=== PATIENT | female | born 1940 | race Caucasian/White ===

== ENCOUNTER 2020-03-07 12:00 | Outpatient (CLI) | payer MEDICARE, MEDICAID, SELFPAY ==
--- NOTE | 2020-03-07 12:16 | USCV_ITS ---
Doug Antoinette Age: 79 Gender: F : 1940 Exam Date: 03/07/2020 12:26 Ordering Phys: Zena Hernandez MD ([email or web address]) Technologist: Mary Hidalgo Exam Location: [facility] [place] Indication: AR BP: / HR: 51 Rhythm: Sinus Technical Quality: Good MEASUREMENTS (Male / Female) Normal Values 2D ECHO LV Diastolic Diameter PLAX 4.4 cm 4.2 - 5.9 / 3.9 - 5.3 cm LV Systolic Diameter PLAX 2.7 cm IVS Diastolic Thickness 1.1 cm 0.6 - 1.0 / 0.6 - 0.9 cm IVS Systolic Thickness 1.7 cm LVPW Diastolic Thickness 1.1 cm 0.6 - 1.0 / 0.6 - 0.9 cm LVPW Systolic Thickness 1.6 cm LVOT Diameter 2.1 cm LV Ejection Fraction 2D Teich 68.2 % LV Ejection Fraction MOD 2C 68.1 % LV Ejection Fraction 2C AL 68.1 % LA Diameter 3.8 cm LA Width 3.4 cm LA Height 4.5 cm RA Width 2.4 cm RA Height 5.4 cm M-MODE LV Diastolic Diameter MM 5.5 cm 4.2 - 5.9 / 3.9 - 5.3 cm LV Systolic Diameter MM 3.8 cm LV Ejection Fraction MM Teich 59.8 % IVS Diastolic Thickness MM 0.6 cm 0.6 - 1.0 / 0.6 - 0.9 cm IVS Systolic Thickness MM 0.8 cm LVPW Diastolic Thickness MM 0.6 cm 0.6 - 1.0 / 0.6 - 0.9 cm LVPW Systolic Thickness MM 1.4 cm Aortic Annulus Diameter 2.5 cm LA Ao Ratio MM 1.5 MV E Point Septal Separation 0.8 cm DOPPLER AV Peak Velocity 239.0 cm/s LVOT Peak Velocity 90.0 cm/s AV Area Cont Eq vti 1.4 cm squared AV Area Cont Eq pk 1.3 cm squared MV Peak Velocity 116.0 cm/s MV Area PHT 2.9 cm squared Mitral E to A Ratio 0.7 MV E' Velocity 8.0 cm/s Mitral E to MV E' Ratio 10.8 Mitral E to LV E' Lateral Ratio 11.3 Mitral E to LV E' Septal Ratio 10.3 TR Peak Velocity 217.0 cm/s TR Peak Gradient 18.9 mmHg Right Atrial Pressure 3.0 mmHg Pulmonary Artery Systolic Pressu 21.8 mmHg PV Peak Velocity 99.0 cm/s RV Acceleration Time 0.1 s FINDINGS Left Ventricle Normal left ventricular size and systolic function, EF 68 %. No regional wall motion abnormalities. Mild left ventricular hypertrophy.Grade I/IV diastolic dysfunction (abnormal relaxation filling pattern), normal to mildly elevated filling pressures. Right Ventricle Normal right ventricular size and systolic function. Right Atrium The right atrium is normal in size. Left Atrium Mildly increased left atrial size. Mitral Valve Thickened mitral valve. Mild mitral annular calcification. Mild- moderate mitral valve regurgitation. Aortic Valve Thickened aortic valve. Ieid-fp-gvaglczt aortic valve regurgitation. Aortic valve sclerosis. Tricuspid Valve Trace tricuspid valve regurgitation. Pulmonic Valve Structurally normal pulmonic valve without significant stenosis. There is no pulmonic regurgitation. Pericardium Normal pericardium without effusion. Aorta Normal ascending aorta dimension. CONCLUSIONS Normal left ventricular size and systolic function, EF 68 %. No regional wall motion abnormalities. Mild left ventricular hypertrophy.Grade I/IV diastolic dysfunction (abnormal relaxation filling pattern), normal to mildly elevated filling pressures. Mildly increased left atrial size. Thickened mitral valve. Mild mitral annular calcification. Mild- moderate mitral valve regurgitation. Thickened aortic valve. Mjqx-cx-sxfoywwd aortic valve regurgitation. Features of aortic valve sclerosis Trace tricuspid valve regurgitation. There is no pericardial effusion. There are no intracardiac masses. Compared to the study from 01/20/2016, there may not be a significant change Dr Zena Hernandez MD [facility] (Electronically Signed) Final Date: 07 March 2020 16:45 S
--- NOTE | 2020-03-07 12:45 | USCV_ITS ---
Doug Antoinette Age: 79 Gender: F : 1940 Exam Date: 03/07/2020 12:09 Ordering Phys: Zena Hernandez MD ([email or web address]) Technologist: Darby Costello Exam Location: [facility] – [place] Indication: carotid stenosis Risk Factors: Previous Vascular Surgery: Right Brachial BP: / Left Brachial BP: / Right Left Velocity (cm/s) Spectral Plaque Velocity (cm/s) Spectral Plaque Syst/Diast Broadening Syst/Diast Broadening 68.80/ 9.90 Prox CCA 59.00 / 12.00 61.80/ 13.70 Mid CCA 47.90 / 12.80 63.50/ 12.00 Hetro Distal CCA 62.40 / 18.80 Hetro 72.00/ 20.60 Hetro Prox ICA 53.60 / 14.20 Hetro 74.60/ 16.30 Mid ICA 69.30 / 19.40 98.50/ 30.50 Distal ICA 50.70 / 17.10 90.10 Hetro ECA 74.50 Hetro 1.60 ICA/CCA 1.45 Antegrade Vertebral Antegrade 36.90/ 14.20 cm/s 35.80/ 7.40 cm/s Tri Subclavian Tri 135.4 42.50 0 FINDINGS Moderate dense irregular plaques at the bifurcation and proximal internal carotid arteries bilaterally Intimal thickening in the common carotid arteries bilaterally Antegrade flow in the vertebral arteries bilaterally Normal Doppler flow velocities in the external carotid arteries bilaterally CONCLUSIONS Moderate dense irregular plaques at the bifurcation and proximal internal carotid arteries bilaterally with velocity elevation consistent with 16-49% stenosis. Compared to the previous study from 03/27/2019, there may not be a significant change Dr Zena Hernandez MD [facility] (Electronically Signed) Final Date: 07 March 2020 16:21 S
== END 2020-03-07 12:01 | disposition home or self-care (01) ==
PROVIDERS: Family Provider Nurse Practitioner Family; PCP Nurse Practitioner Family; Visit Provider Internal Medicine Cardiovascular Disease
DX: I65.23 Occlusion and stenosis of bilateral carotid arteries (principal); I08.3 Combined rheumatic disorders of mitral, aortic and tricuspid valves
CPT/HCPCS: 93306; 93880

== ENCOUNTER 2021-11-12 06:43 | Outpatient (CLI) | payer MEDICARE, MEDICAID, SELFPAY ==
--- NOTE | 2021-11-12 07:15 | USCV_ITS ---
Antoinette Camacho Age: 81 Gender: F : 1940 Exam Date: 11/12/2021 06:52 Ordering Phys: Yo Levine MD (Andy) ([email or web address]) Technologist: Exam Location: [facility] [place] Indication: aaa HISTORY: Diameter (cm) AP x Transverse x Length Velocity (cm/s) Waveform Prox Aorta: 2.32 x 2.71 x 56.40 Biphasic Mid Aorta: 2.19 x 2.43 x 115.00 Biphasic Distal Aorta: 5.41 x 5.44 x 110.90 Biphasic Right Iliac Prox: 1.02 x 1.29 x 187.10 Biphasic Left Iliac Prox: 0.86 x 1.26 x 117.10 Biphasic Stent Prox Landing x x Aneurysmal Sac Max x x Lt Lat Sac Dim Rt Lat Sac Dim Stent Dist Landing x x Right Iliac Stent x x Left Iliac Stent x x Right Renal Art Left Renal Art FINDINGS: CONCLUSIONS Aneurysmal Distal abdominal aorta measuring 5.4 x 5.4cm Normal common iliac arteries Javi Ohara MD (Electronically Signed) Final Date: 12 November 2021 09:42 S
== END 2021-11-12 06:44 | disposition home or self-care (01) ==
LOC: RAD 06:44
PROVIDERS: PCP Nurse Practitioner Family; Visit Provider Thoracic Surgery (Cardiothoracic Vascular Surgery)
DX: I71.4 Abdominal aortic aneurysm, without rupture (principal)
CPT/HCPCS: 93978

== ENCOUNTER 2021-11-18 10:36 | Outpatient (CLI) | payer MEDICARE, MEDICAID, SELFPAY ==
--- NOTE | 2021-11-18 11:00 | CTR_ITS ---
PROCEDURE INFORMATION: Exam: CTA Abdomen and Pelvis With Contrast Exam date and time: 11/18/2021 11:00 AM Age: 81 years old Clinical indication: Condition or disease; Prior surgery; Surgery type: Cardiac stents; Patient HX: Aaa; Per PT US 09/2021 showed enlarged abdominal aorta; PT denies pain to abd area TECHNIQUE: Imaging protocol: Computed tomographic angiography of the abdomen and pelvis with contrast material. 3D rendering (Not supervised by radiologist): MIP and/or 3D reconstructed images were created by the technologist. Radiation optimization: All CT scans at this facility use at least one of these dose optimization techniques: automated exposure control; mA and/or kV adjustment per patient size (includes targeted exams where dose is matched to clinical indication); or iterative reconstruction. Contrast material: VISI 320; Contrast volume: 95 ml; Contrast route: INTRAVENOUS (IV); COMPARISON: No relevant prior studies available. RADIATION DOSE METRICS: Total DLP (mGy-cm): 807.07 FINDINGS: Lungs: Paraseptal emphysema is present. No consolidation. Aorta: Moderate diffuse atherosclerotic disease is present. There is fusiform aneurysmal dilatation of the infrarenal abdominal aorta, measuring 5.8 x 5.8 x 7.5 cm (Trans x AP x CC). Endoluminal thrombus is seen along the wall of the aneurysm. Celiac trunk and mesenteric arteries: There is focal severe stenosis at the ostium of the celiac trunk and SMA. Patent JORGE. Renal arteries: No occlusion. There is iowd-nn-zifqnxsc stenosis at the ostium of the renal arteries. Right iliac arteries: No occlusion or significant stenosis. Left iliac arteries: No occlusion or significant stenosis. Liver: There is a 1.1 cm hypodense lesion in segment IVb, likely representing a cyst or hemangioma. The liver is otherwise unremarkable. Gallbladder and bile ducts: Unremarkable. No calcified stones. No ductal dilation. Pancreas: Unremarkable. No mass. No ductal dilation. Spleen: Unremarkable. No splenomegaly. Adrenal glands: Unremarkable. No mass. Kidneys and ureters: Bilateral renal cysts noted, the largest measuring 3.5 cm on the right. Symmetric enhancement of the kidneys. No mass lesion identified. No hydronephrosis or nephrolithiasis. Stomach and bowel: There is diverticulosis without evidence of diverticulitis. Appendix: No evidence of appendicitis. Intraperitoneal space: Unremarkable. No free air. No significant fluid collection. Lymph nodes: Unremarkable. No enlarged lymph nodes. Urinary bladder: Unremarkable. No mass. Reproductive: Unremarkable as visualized. Bones/joints: No acute fracture. No dislocation. Degenerative changes of the spine seen. Soft tissues: Unremarkable. CT/CT angio abdomen pelvis [id number] IMPRESSION: Infrarenal abdominal aortic aneurysm.
[2021-11-18] MEDS: iodixanol 320 mg/mL 100mL Btl IV (11:28)
[2021-11-18 11:58] LABS: Blood Urea Nitrogen 26 mg/dL (8-23)
== END 2021-11-18 10:37 | disposition home or self-care (01) ==
PROVIDERS: PCP Nurse Practitioner Family; Visit Provider Thoracic Surgery (Cardiothoracic Vascular Surgery)
DX: I71.4 Abdominal aortic aneurysm, without rupture (principal)
CPT/HCPCS: 74174; 82565; 84520

== ENCOUNTER → 2021-11-23 10:59 | Outpatient (BNVA) | payer MEDICARE, MEDICAID, SELFPAY | PROVIDERS: PCP Nurse Practitioner Family; Visit Provider Internal Medicine Cardiovascular Disease | DX: I65.29 Occlusion and stenosis of unspecified carotid artery (principal); I35.1 Nonrheumatic aortic (valve) insufficiency; I10 Essential (primary) hypertension | CPT/HCPCS: 99214 ==

== ENCOUNTER → 2021-11-26 09:20 | Outpatient (BNVA) | payer MEDICARE, MEDICAID, SELFPAY | PROVIDERS: PCP Nurse Practitioner Family; Visit Provider Thoracic Surgery (Cardiothoracic Vascular Surgery) | DX: I71.4 Abdominal aortic aneurysm, without rupture (principal); Z87.891 Personal history of nicotine dependence | CPT/HCPCS: 99213; 99214 ==

== ENCOUNTER → 2021-12-23 10:14 | Day surgery (SDC) | payer MEDICARE, MEDICAID, SELFPAY | PROVIDERS: PCP Nurse Practitioner Family; Visit Provider Thoracic Surgery (Cardiothoracic Vascular Surgery) | DX: Z01.818 Encounter for other preprocedural examination (principal) | CPT/HCPCS: 93005 ==

== ENCOUNTER 2021-12-29 05:56 | Inpatient (IN) | payer MEDICARE, MEDICAID, SELFPAY ==
[2021-12-23 10:03] VITALS: BMI 27.0
--- NOTE | 2021-12-23 10:14 | ECG_ITS ---
[facility] Test Date: 2021-12-23 Pat Name: Antoinette Camacho Department: Room: Gender: Female [employer] Supervisor: : 1940 Requested By: Yuriy Field Order Number: [id number] Oren MD: Arcadio Marshall M.D. Measurements Intervals [place] Rate: 57 P: 54 AK: 190 QRS: -10 QRSD: 92 T: 43 QT: 435 QTc: 426 Interpretive Statements SINUS BRADYCARDIA MODERATE VOLTAGE CRITERIA FOR LVH, CONSIDER NORMAL VARIANT [MEETS CRITERIA IN ONE OF: R(aVL), S(V1), R(V5), R(V5/V6)+S(V1)] No previous ECG available for comparison Electronically Signed On 12-23-2021 22:27:53 CDT by Arcadio Marshall M.D. [id number]
[2021-12-23 10:25] LABS: Add Urine Microscopic? NO; Charge for UA Resulting for Rev
[2021-12-23 10:41] LABS: Bilirubin Urine Neg (Negative); Blood Urine Neg (Negative); Glucose Urine UA Norm (Normal); Ketones Urine Negative (Negative); Leukocyte Esterase Urine Negative (Negative); Nitrate Urine Negative (Negative); Protein Urine Neg (Negative); Specific Gravity, Urine 1.005 (1.005-1.030); Urine Appearance Clear (CLEAR); Urine Color Yellow (Yellow); Urobilinogen Urine Neg (Negative); pH Urine 5 (5-7)
[2021-12-23 10:58] LABS: Basophils # 0.1 10^3/uL (0.0-0.1); Basophils % 0.9 %; Eosinophils # 0.4 10^3/uL (0.0-0.8); Eosinophils % 4.9 %; Hematocrit 37.2 % (37.0-47.0); Hemoglobin 11.7 g/dL (11.5-15.3); Lymphocytes # 0.8 10^3/uL (0.8-4.8); Lymphocytes % 10.5 %; Mean Corpuscular HGB Conc 31.5 g/dL (30.0-36.0); Mean Corpuscular Hemoglobin 27.9 pg (28.0-34.0); Mean Corpuscular Volume 88.8 fl (81-99); Mean Platelet Volume 12.2 fL (7.4-10.4); Monocytes # 0.8 10^3/uL (0.2-0.9); Monocytes % 10.8 %; Neutrophils # 5.55 10^3/uL (1.8-7.7); Neutrophils % 72.4 %; Nucleated Red Blood Cells % 0 %; Platelet Count 233 10^3/cmm (130-400); Red Blood Count 4.19 10^6/uL (4.1-5.3); Red Cell Distribution Width 14.1 % (12.1-15.1); White Blood Count 7.7 10^3/uL (4.0-10.0)
[2021-12-23 11:41] LABS: Anion Gap 17.1 (5-19); Blood Urea Nitrogen 28 mg/dL (8-23); Calcium 10.1 mg/dL (8.5-10.5); Carbon Dioxide 25 mmol/L (22-29); Chloride 101 mmol/L (98-107); Glucose 93 mg/dL (65-115); Osmolality Calculated 293 mOsm/kg (285-295); Potassium 4.1 mmol/L (3.5-5.1); Sodium 139 mmol/L (136-145)
--- NOTE | 2021-12-23 16:44 | P.ANESASSM_ITS ---
Pre-Anesthetic Assessment Height/Weight: Height 1.55 m Weight 64.864 kg Preop Diagnosis: Abdominal aortic aneurysm Operation Date: 12/29/21 07:00 Proposed Procedures p AAA Stent Cutdown(Not Applicable) - Yo Levine MD Operation Date: 12/29/21 07:00 Proposed Procedures p Endovascular Aortic Repair(Not Applicable) - Yo Levine MD Familial anesthetic complications: None Was Beta Won taken within 24 hours: Yes Was Clonidine taken within 24 hours: N/A Social No alcohol and No tobacco former smoker pack(s) per day Exam alert, oriented x 3, clear to auscultation bilaterally and regular rate & rhythm Airway Submandibular: within normal limits Cervical ROM: within normal limits Mallampati: Class II Dentition: false Pulmonary Exertional Dyspnea Denies cx of COPD CV/HEM Anemia (Hx of anemia ), Coronary Artery Disease (Hx of cardiac stents ), Hypertension, Murmur and Peripheral Vascular Disease METS = 4 Carotid stenosis AAA Mitral regurgitation EKG 12/23/21 ? ? ? Interpretive Statements SINUS BRADYCARDIA MODERATE VOLTAGE CRITERIA FOR LVH, CONSIDER NORMAL VARIANT? [MEETS CRITERIA IN ONE OF: R(aVL), S(V1), R(V5), R(V5/V6)+S(V1)] No previous ECG available for comparison [id number] [id number] Carotid Doppler 03/2020 CONCLUSIONS ?Moderate dense irregular plaques at the bifurcation and proximal ?internal carotid arteries bilaterally with velocity elevation ?consistent with 16-49% stenosis. ?Compared to the previous study from 03/27/2019, there may not be ?a significant change TTE 03/2020 ?CONCLUSIONS ?Normal left ventricular size and systolic function, EF 68 %. No ?regional wall motion abnormalities. Mild left ventricular ?hypertrophy.Grade I/IV diastolic dysfunction (abnormal ?relaxation filling pattern), normal to mildly elevated filling ?pressures. ?Mildly increased left atrial size. ?Thickened mitral valve. Mild mitral annular calcification. Mild- ?moderate mitral valve regurgitation. ?Thickened aortic valve. Nzvh-oq-ktzcmhjx aortic valve ?regurgitation. ?Features of aortic valve sclerosis ?Trace tricuspid valve regurgitation. ?There is no pericardial effusion. ?There are no intracardiac masses. ?Compared to the study from 01/20/2016, there may not be a ?significant change None reported Hepatic None reported GI None reported Metabolic Thyroid Disease [facility] [place] None reported Neuropsych None reported Anesthetic Plan ASA status: 3 (81 year old female former smoker with carotid stenosis, CAD s/p stents, MR, HTN, and AAA ) Anesthesia: Anesthesia Evaluation Other: We discussed risk and benefits of general anesthesia including PONV, sore throat (sometimes severe), corneal abrasion, positioning and peripheral nerve injuries, life threatening allergic reaction, post operative ICU admission requiring prolonged intubation, stroke, heart attack, , and rare incidences of recall. Patient consents to proceed with general anesthesia. Plan 2 IV, a line Risk of > 500 ml blood loss (7ml/kg in children): Yes, adequate IV access and fluids planned Medications/Allergies Home Medications Medication Instructions Recorded Confirmed Last Taken Type cyanocobalamin (vitamin B-12) 1,000 mcg SUBCUT .monthly ml 09/25/19 12/23/21 12/20/21 History 1,000 mcg/mL injection solution levothyroxine 88 mcg capsule 88 mcg PO QDAY 09/25/19 12/23/21 Unknown History turmeric root extract 500 mg 500 mg PO QID 09/25/19 12/23/21 Unknown History capsule metoprolol tartrate 50 mg tablet 50 mg PO BID #180 tab 01/12/21 12/23/21 Unknown Rx clopidogrel 75 mg tablet (Plavix) 75 mg PO QDAY #90 tab 04/14/21 12/23/21 12/23/21 Rx amlodipine 10 mg tablet 10 mg PO DAILY tab 10/15/21 12/23/21 Unknown History cinnamon bark 500 mg capsule 1,000 mg PO DAILY 11/23/21 12/23/21 Unknown History atorvastatin 40 mg tablet (Lipitor) 40 mg PO BEDTIME 12/23/21 12/23/21 Unknown History chlorthalidone 25 mg tablet 25 mg PO DAILY 12/23/21 12/23/21 Unknown History losartan 100 mg tablet 100 mg PO BEDTIME 12/23/21 12/23/21 Unknown History omega-3 fatty acids 1,000 mg PO DAILY 12/23/21 12/23/21 Unknown History Allergies Allergy/AdvReac Type Severity Reaction Status Date / Time codeine Allergy unknown Verified 11/26/21 09:27 [facility] Anesthesia Medical History AAA (abdominal aortic aneurysm) Anemia Arteriosclerotic heart disease (ASHD) Carotid stenosis Hyperlipemia Hypertension Valvular heart disease Patient was found to have mild to moderate mitral regurgitation by the echocardiogram, on 03/07/2020 Surgical History H/O cataract extraction History of cholecystectomy History of tubal ligation Family History Mother CAD (coronary artery disease) Family/Other CAD (coronary artery disease) Father Dementia Other Hypertension Denies family history of Diabetes Clotting disorder Chronic kidney disease (CKD) Suicide Anesthesia complication Bleeding disorder Lung disease Cancer Stroke Social History Smoking and tobacco status: former smoker Quit status (tobacco): has quit using tobacco Year quit tobacco: 2010 Former quit date comment: Smoked 1 pack per day x 51 years Alcohol intake: never Data Anesthesia : 12/23/21 10:41 12/23/21 10:41 Short CBC 12/23/21 Range/Units 10:41 WBC 7.7 (4.0-10.0) 10^3/uL Hgb 11.7 (11.5-15.3) g/dL Hct 37.2 (37.0-47.0) % MCV 88.8 (81-99) fl Plt Count 233 (130-400) 10^3/cmm Neut % (Auto) 72.4 % Neut # (Auto) 5.55 (1.8-7.7) 10^3/uL BMP 12/23/21 10:41 Sodium 139 Potassium 4.1 Chloride 101 Carbon Dioxide 25 BUN 28 H Creatinine 1.3 H Glucose 93 Calcium 10.1 Urine 12/23/21 Range/Units 10:15 Urine Color Yellow (Yellow) Urine Appearance Clear (CLEAR) Urine pH 5 (5-7) Ur Specific [place] 1.005 (1.005-1.030) Urine Protein Neg (Negative) Urine Glucose (UA) Norm (Normal) Urine Ketones Negative (Negative) Urine Nitrate Negative (Negative) Urine Bilirubin Neg (Negative) Ur Leukocyte Esterase Negative (Negative) Blood Bank 12/23/21 10:41 Blood Type O Positive Rho(D) Type Positive Antibody Screen Negative Cardiac Studies: Echocardiogram Ultrasound 03/07/20
[2021-12-29] VITALS (20 sets, daily range): BP systolic 87–119; BP diastolic 39–62; PULSE 53–83; RESP 7–20; TEMP 36.8; O2SAT 91–100
--- NOTE | 2021-12-29 06:05 | P.HP_ITS ---
Providers/Chief Complaint Admitting Physician: Dr. Levine/cardiothoracic surgery Primary Care Provider: MIMI Phelps Chief Complaint: triple AAA History of Present Illness Antoinette Camacho is a 81 year old female whom I saw originally in consultation back on October 15 upon referral for incidental finding of a distal abdominal aortic aneurysm up to 7 cm and described which was noted on a renal ultrasound September 17. The study was performed at [facility]. She had originally been diagnosed with renal insufficiency and was being evaluated by a medical social consultant. She has chronic kidney disease stage III. She remains asymptomatic. Creatinine has been averaging 1.3-1.6 but has peaked at 1.8 previously. She is a past history of tobacco use though none since 2010. She has no other peripheral vascular disease symptoms such as claudication. She is followed by Dr. Hernandez for her cardiac care. She does have a prior history for coronary stents. Transthoracic echocardiogram from March 07, 2020 reveals mild to moderate aortic insufficiency and mild to moderate mitral valve regurgitation. Ejection fraction calculated 68%. She has no family history for aneurysmal disease. Evaluation continued with aortoiliac ultrasound on November 12 describing the distal aorta at 5.41 x 5.44 cm. This was followed up with a CTA of the abdomen and pelvis of November 18. The aorta measures 5.8 x 5.8 x 7.5 cm in transverse by AP by craniocaudal dimensions. There is intraluminal thrombus along the wall of the aneurysm. There is focal stenosis of the celiac and SMA trunks. There is a patent JORGE. No stenoses in the renal arteries. I saw Ms. Camacho back in my clinic on November 26 and reviewed the CTA findings with her. Recommendation to consider elective endovascular pair was discussed as well as potential complications. She does wish to proceed, therefore she was electively admitted for planned procedure. Review of Systems Const: Reports: body aches; Denies: fever(s) or chills Eyes: Denies: change in vision ENMT: Reports: nasal discharge and nasal congestion Card: Reports: swelling of feet/ankles and dyspnea on exertion Resp: Denies: productive cough, non-productive cough or hemoptysis GI: Denies: abdominal pain, nausea, vomiting or hematemesis Musc: Reports: back pain and joint pain Skin/Breast: Denies: rash Psych: Denies: anxiety or depression Endo: Denies: polyuria or polydipsia Edmundo/Lymph: Reports: easy bruising Medications/Allergies Home Medications Medication Instructions Recorded Confirmed Last Taken Type cyanocobalamin (vitamin B-12) 1,000 mcg SUBCUT .monthly ml 09/25/19 12/23/21 12/20/21 History 1,000 mcg/mL injection solution levothyroxine 88 mcg capsule 88 mcg PO QDAY 09/25/19 12/23/21 Unknown History turmeric root extract 500 mg 500 mg PO QID 09/25/19 12/23/21 Unknown History capsule metoprolol tartrate 50 mg tablet 50 mg PO BID #180 tab 01/12/21 12/23/21 Unknown Rx clopidogrel 75 mg tablet (Plavix) 75 mg PO QDAY #90 tab 04/14/21 12/23/21 12/23/21 Rx amlodipine 10 mg tablet 10 mg PO DAILY tab 10/15/21 12/23/21 Unknown History cinnamon bark 500 mg capsule 1,000 mg PO DAILY 11/23/21 12/23/21 Unknown History atorvastatin 40 mg tablet (Lipitor) 40 mg PO BEDTIME 12/23/21 12/23/21 Unknown History chlorthalidone 25 mg tablet 25 mg PO DAILY 12/23/21 12/23/21 Unknown History losartan 100 mg tablet 100 mg PO BEDTIME 12/23/21 12/23/21 Unknown History omega-3 fatty acids 1,000 mg PO DAILY 12/23/21 12/23/21 Unknown History Allergies Allergy/AdvReac Type Severity Reaction Status Date / Time codeine Allergy unknown Verified 11/26/21 09:27 PFSH Acute PFSH: Medical History AAA (abdominal aortic aneurysm) Anemia Arteriosclerotic heart disease (ASHD) Carotid stenosis Hyperlipemia Hypertension Valvular heart disease Patient was found to have mild to moderate mitral regurgitation by the echocardiogram, on 03/07/2020 Surgical History H/O cataract extraction History of cholecystectomy History of tubal ligation Family History Mother CAD (coronary artery disease) Family/Other CAD (coronary artery disease) Father Dementia Other Hypertension Denies family history of Diabetes Clotting disorder Chronic kidney disease (CKD) Suicide Anesthesia complication Bleeding disorder Lung disease Cancer Stroke Social History Smoking and tobacco status: former smoker Quit status (tobacco): has quit using tobacco Year quit tobacco: 2010 Former quit date comment: Smoked 1 pack per day x 51 years Alcohol intake: never Physical Exam HENMT: COMMON NORMALS: normocephalic, atraumatic and hearing grossly normal bilaterally Eye: COMMON NORMALS: Equal, round and reactive pupils present and EOMs intact bilaterally Neck/C-Spine: COMMON NORMALS: full ROM, no lymphadenopathy and No carotid bruits Chest: COMMONS NORMALS: normal palpation of entire chest wall Cardio: RATE: regular rate RHYTHM: regular rhythm HEART SOUNDS: S1 normal heart sound present and Murmur heart sound present systolic Location: bas e Intensity: III/ PERIPHERAL PULSES: Peripheral pulses 2+ throughout OTHER: Femoral pulses are equal and 2+ bilaterally. GI: COMMON NORMALS: Normal to inspection, nondistended, normoactive bowel sounds present INSPECTION: Yes normal to inspection Extremity: COMMON NORMALS: no clubbing, cyanosis or edema Neuro: COMMON NORMALS: patient oriented x3, no focal motor deficits and no sensory deficits noted Data : 12/23/21 10:41 12/23/21 10:41 A&P Assessment and plan (1) AAA (abdominal aortic aneurysm): 5.8 cm abdominal aortic aneurysm Plan: Rationale to consider elective endovascular pair was carefully discussed with Ms. Camacho. Preoperative patient education has been completed. All questions answered. Details and risks of the procedure were carefully and frankly discussed with Ms. Camacho and her son who was present today. Risks reviewed include the possi bility of , stroke, heart attack, major bleeding, infection, pneumonia, organ failure, failure to benefit, prolonged hospital stay, pain after the procedure, malperfusion of abdominal organs which could result in organ failure, malperfusion of the lower extremities which may require further surgery or possible ultimate major amputation, need for further procedures, inability to complete the procedure, and need for long-term followup. All questions were answered. Appropriate consents have been provided for review and signature. 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
--- NOTE | 2021-12-29 06:41 | P.ANESUD_ITS ---
Pre-Anesthetic Update Pre-Anesthetic Assessment: Date of Surgery/Procedure: 12/29/21 Preop Emilie gnosis: Abdominal aortic aneurysm Proposed Procedure: Operation Date: 12/29/21 07:00 Proposed Procedures p AAA Stent Cutdown(Not Applicable) - Yo Levine MD Operation Date: 12/29/21 07:00 Proposed Procedures p Endovascular Aortic Repair(Not Applicable) - Yo Levine MD Any changes to Pre-Anesthetic Assessment?: No Labs Last 48hrs: Blood Bank 12/23/21 10:41 Blood Type O Positive Rho(D) Type Positive Antibody Screen Negative Exam: Pre-Anes Outpt Exam: alert, oriented x 3, clear to auscultation bilaterally and regular rate & rhythm Cardiac Studies: Echocardiogram Ultrasound 03/07/20
--- NOTE | 2021-12-29 11:39 | PC.NURSE ---
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
[2021-12-29] MEDS: lactated ringers 1,000 ML 150 ML IV ×2 (11:53→17:43)
[2021-12-29] MEDS: morphine 4 mg/mL SDV 1 mL 2 MG IVP ×2 (12:39→15:29)
--- NOTE | 2021-12-29 12:56 | P.OP_ITS ---
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 Camacho is a pleasant 81-year-old female with progressive early chronic renal insufficiency who during renal ultrasound as part of continued evaluation was found incidentally to have over 5 cm abdominal aortic aneurysm. 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 She has mild chronic renal insufficiency with a creatinine of 1.3-1.6, and is being followed by nephrology service. She underwent careful outpatient preop evaluation and was separately scheduled for attempt at elective endovascular repair. Details of risk of the procedure were carefully reviewed. Appropriate consents have been reviewed and signed. Procedure: Ms. Camacho was taken to the catheterization lab, carefully positioned, and then underwent general endotracheal anesthesia. Appropriate invasive lines were placed including right radial arterial line and adequate vascular access. His lower chest and entire abdomen, groin region, and thighs were sterilely prepped and draped. An appropriate timeout was completed and confirmed. A cutdown was performed in the right groin exposing the right common femoral artery. Next, via needle access and guidewire placement with fluoroscopy, a 6 [place] sheath was placed in the left common femoral artery, and ProGlide Perclose securing sutures x 2 were engaged in the arterial wall and secured. The patient then received 10,000 units of heparin and ACT was confirmed to be therapeutic. The 6 [place] sheath was then replaced with a 7 [place] sheath over wire. A 17 [place] sheath was then placed in the right femoral artery. A J-wire was utilized to be exchanged on the ipsilateral side to a Lunderquist stiff wire. Next, a loaded 28 x 100 AFX2 bifurcated device and delivery sheath were placed over the stiff wire and advanced along with the contralateral wire up through the 17 [place] AFX introducer sheath utilizing wireguide. The contralate ral wire was then snared and pulled out through the left common femoral artery. The AFX2 bifurcated device was transferred into the AFX introducer sheath and advanced under fluoroscopic guidance until distal limbs were above the aortic bifurcation thereby releasing the limbs of the graft. The entire system was pulled down to the aortic bifurcation. The main body of the bifurcated graft was then deployed by pulling on the controlled cord handle. Next, we deployed the contralateral limb by pulling the yellow limb cover, advancing a pigtail catheter over the contralateral wire into the tip was in contact with the wire lock, with wire lock being released by pulling it with a stationary pigtail catheter in position. The ipsilateral limb was then deployed by pinning the inner core and retracting the AFX introducer sheath. Next, we advanced and deployed a 28 x 95 supra extension endograft after angiography was performed to visualize the renal arteries. Iliac extensions were not required. Next, we removed the extension delivery device from the AFX introducer sheath. A CODA balloon was then utilized to clear the proximal extension distally just above the bifurcation to allow for complete wall contact. Coda balloon was utilized to confirm approximation of the graft and all levels of overlap. Final angiography was performed in subtraction mode revealed poor visualization of the right renal artery. Next, a guidewire was utilized to pass J-tipped catheter up to the level of the superior extension of the graft material and directed to the right where we were able to engage the right renal artery and pass a guidewire. At this point, we elected to dilate this area utilizing a 2.5 x 12 mm balloon. Postdilatation angiogram revealed brisk opacification of both renal arteries extending into the renal parenchyma. Final angiography revealed no evidence for extravasation or endoleak with some mild tapering of the proximal left common iliac artery. This area is soft and underwent angioplasty utilizing a Coda balloon with good result. Next, catheters, sheaths, and guidewires were removed under fluoroscopic guidance. Perclose device was then utilized to close the left common femoral artery insertion site. This was noted to be hemostatic. The right common femoral artery was repaired directly utilizing 6 oh pursestring sutures x2. There was good backbleeding and forward bleeding was prior to completion of the repair. Flow was then reestablished. 50 mg of protamine was given for heparin reversal. Right groin was noted to be hemostatic. It was irrigated with antibiotic solution. Sponge and needle count was correct. Wound was closed in 2 layers of 2-0 Vicryl suture. Skin was reapproximated in a subcuticular manner with 4-0 Monocryl suture. Sterile dress ings were applied. Lower extremities and feet were warm bilaterally at the completion of the procedure. She was awakened and extubated on the catheterization table. Ms. Camacho was then transferred to the ICU in stable condition. I did debt counselor with her son at the completion of the procedure.
[2021-12-29] MEDS: ceFAZolin 1,000 MG in sodium chloride 0.9% (plus) 50 ML 100 MG IV ×2 (15:36→23:45)
--- NOTE | 2021-12-29 17:41 | ANE.PACU2 ---
Inpatient post-anesthesia follow up: Airway intact: Yes Vital signs: Temperature Pulse Rate 53 Respiratory Rate 7 Blood Pressure 102/39 Pulse Oximetry 91 Oxygen Delivery Me thod Room Air Oxygen Flow Rate Fraction of Inspir ed Oxygen Hydration adequate: Yes Nausea and vomiting: No Pain level: 2 Mental status: Baseline
[2021-12-29] MEDS: ondansetron 2 mg/ML SDV 2 mL 4 MG IVP (19:48)
[2021-12-29] MEDS: losartan 50 mg Tablet 100 MG PO (19:51)
[2021-12-29] MEDS: TRAMadol 50 mg Tablet PO (19:52)
[2021-12-29] MEDS: atorvastatin 40 mg Tablet PO (19:52)
--- NOTE | 2021-12-29 22:54 | PC.NURSE ---
Arterial monitoring line removed. Pressure dressing applied. Clean, dry, and intact. No hematoma.
[2021-12-30] VITALS (25 sets, daily range): BP systolic 91–139; BP diastolic 33–70; PULSE 54–98; RESP 7–19; O2SAT 91–98
[2021-12-30] MEDS: lactated ringers 1,000 ML 150 ML IV ×2 (00:24→07:25)
--- NOTE | 2021-12-30 02:59 | PC.NURSE ---
Patient up to chair about 1929. Patient became lightheaded with N/V. Zofran administered per order. Patient sat up for about two hours before going back to bed. Patient complained of pain 10/10 in her right hip and groin. Tramadol administered per order. No abnormalities visible or palpable. Once patient was laying semi-fowlers, left-lateral with pillow support in bed, n/v resolved. Pain level improved from 10 to 1.
[2021-12-30 03:48] LABS: Basophils % 0.4 %; Eosinophils % 0.2 %; Hemoglobin 7.9 g/dL (11.5-15.3); Lymphocytes # 0.5 10^3/uL (0.8-4.8); Lymphocytes % 4.7 %; Mean Corpuscular HGB Conc 30.4 g/dL (30.0-36.0); Mean Corpuscular Hemoglobin 28.3 pg (28.0-34.0); Mean Corpuscular Volume 93.2 fl (81-99); Mean Platelet Volume 12.8 fL (7.4-10.4); Monocytes # 0.7 10^3/uL (0.2-0.9); Monocytes % 6.3 %; Nucleated Red Blood Cells % 0 %; Platelet Count 164 10^3/cmm (130-400); Red Blood Count 2.79 10^6/uL (4.1-5.3); Red Cell Distribution Width 14.3 % (12.1-15.1); White Blood Count 10.6 10^3/uL (4.0-10.0)
[2021-12-30 04:06] LABS: Anion Gap 14.1 (5-19); Blood Urea Nitrogen 14 mg/dL (8-23); Calcium 7.7 mg/dL (8.5-10.5); Carbon Dioxide 24 mmol/L (22-29); Chloride 107 mmol/L (98-107); Glucose 118 mg/dL (65-115); Osmolality Calculated 294 mOsm/kg (285-295); Potassium 4.1 mmol/L (3.5-5.1); Sodium 141 mmol/L (136-145)
[2021-12-30] MEDS: levothyroxine 88 mcg Tablet PO (06:02)
[2021-12-30] MEDS: ceFAZolin 1,000 MG in sodium chloride 0.9% (plus) 50 ML 100 MG IV (06:03)
--- NOTE | 2021-12-30 07:46 | PM.DCS ---
Discharge Providers Date of Admission: 12/29/21 05:56 Date of Discharge: December 30, 2021 Attending Provider at Admission: Yo Levine MD Attending Provider at Discharge: Yo Levine MD Primary Care Provider: MIMI Phelps Diagnoses at Discharge Discharge Diagnosis (1) AAA (abdominal aortic aneurysm): Details from hospital stay: Ms. 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 She has modest renal insufficiency which has remained stable. She underwent careful outpatient preoperative evaluation that was electively admitted for planned endovascular repair. This was performed yesterday. She tolerated quite well. She is been convalescing in the ICU where she had stable vital signs. Lower extremities are warm with good perfusion. Only modest surgical discomfort in the right groin. She has been up with assistance and has ambulated to the restroom without assistance. She is tolerating a diet well. She is eager for discharge home. She will be completing perioperative antibiotics later this morning. We will plan for discharge to home later today. Currently she is in stable condition. Status: Acute Reason for Visit Reason for Visit: triple AAA Physical Exam Const: COMMON NORMALS: patient oriented x3 Resp: COMMON NORMALS: No use of accessory muscles and clear to auscultation bilaterally AUSCULTATION: clear to auscultation bilaterally Cardio: COMMON NORMALS: regular rate, regular rhythm, S1 normal heart sound present and No murmurs present (Cardio) RATE: regular rate RHYTHM: regular rhythm HEART SOUNDS: S1 normal heart sound present Extremity: NARRATIVE EXTREMITY EXAM: Good distal perfusion. Surgical dressings are clean and dry. Incision is clean and dry. Neuro: COMMON NORMALS: patient oriented x3, no focal motor deficits and no sensory deficits noted Discharge Data Studies Completed and Pending Completed Studies During Hospitalization Category Date Time Status [employer] MANAGER request for service Routine Exams 12/29/21 06:00 Completed Pending at discharge Category Date Time Status Leukocyte Reduced RBC Routine Lab 12/23/21 10:41 Results Type and Screen - Cardiac Routine Lab 12/23/21 10:41 Results Laboratory Results WBC 10.6 10^3/uL (4.0-10.0) H 12/30/21 02:48 RBC 2.79 10^6/uL (4.1-5.3) L 12/30/21 02:48 Hgb 7.9 g/dL (11.5-15.3) L 12/30/21 02:48 Hct 26.0 % (37.0-47.0) L 12/30/21 02:48 MCV 93.2 fl (81-99) 12/30/21 02:48 MCH 28.3 pg (28.0-34.0) 12/30/21 02:48 MCHC 30.4 g/dL (30.0-36.0) 12/30/21 02:48 RDW 14.3 % (12.1-15.1) 12/30/21 02:48 Plt Count 164 10^3/cmm (130-400) 12/30/21 02:48 MPV 12.8 fL (7.4-10.4) H 12/30/21 02:48 Neut % (Auto) 88.0 % 12/30/21 02:48 Lymph % (Auto) 4.7 % 12/30/21 02:48 [place] % (Auto) 6.3 % 12/30/21 02:48 Eos % (Auto) 0.2 % 12/30/21 02:48 Baso % (Auto) 0.4 % 12/30/21 02:48 Neut # (Auto) 9.30 10^3/uL (1.8-7.7) H 12/30/21 02:48 Lymph # (Auto) 0.5 10^3/uL (0.8-4.8) L 12/30/21 02:48 [place] # (Auto) 0.7 10^3/uL (0.2-0.9) 12/30/21 02:48 Eos # (Auto) 0.0 10^3/uL (0.0-0.8) 12/30/21 02:48 Baso # (Auto) 0.0 10^3/uL (0.0-0.1) 12/30/21 02:48 Nucleated RBC % (auto) 0 % 12/30/21 02:48 Nucleated RBCs # 0.0 /100WBC 12/30/21 02:48 Sodium 141 mmol/L (136-145) 12/30/21 02:48 Potassium 4.1 mmol/L (3.5-5.1) 12/30/21 02:48 Chloride 107 mmol/L (98-107) 12/30/21 02:48 Carbon Dioxide 24 mmol/L (22-29) 12/30/21 02:48 Anion Gap 14.1 (5-19) 12/30/21 02:48 BUN 14 mg/dL (8-23) 12/30/21 02:48 Creatinine 1.0 mg/dL (0.5-0.9) H 12/30/21 02:48 GFR Calculation Not Reportable 12/30/21 02:48 Glucose 118 mg/dL (65-115) H 12/30/21 02:48 Calculated Osmolality 294 mOsm/kg (285-295) 12/30/21 02:48 Calcium 7.7 mg/dL (8.5-10.5) L 12/30/21 02:48 Urine Color Yellow (Yellow) 12/23/21 10:15 Urine Appearance Clear (CLEAR) 12/23/21 10:15 Urine pH 5 (5-7) 12/23/21 10:15 Ur Specific [place] 1.005 (1.005-1.030) 12/23/21 10:15 Urine Protein Neg (Negative) 12/23/21 10:15 Urine Glucose (UA) Norm (Normal) 12/23/21 10:15 Urine Ketones Negative (Negative) 12/23/21 10:15 Urine Blood Neg (Negative) 12/23/21 10:15 Urine Nitrate Negative (Negative) 12/23/21 10:15 Urine Bilirubin Neg (Negative) 12/23/21 10:15 Urine Urobilinogen Neg mg/dL (Negative) 12/23/21 10:15 Ur Leukocyte Esterase Negative (Negative) 12/23/21 10:15 Blood Type O Positive 12/23/21 10:41 Rho(D) Type Positive 12/23/21 10:41 Antibody Screen Negative 12/23/21 10:41 Crossmatch See Detail 12/23/21 10:41 Procedures Performed Endovascular pair of abdominal aortic aneurysm on December 29, 2021 Vitals Last Vital Signs Temp 98.2 F 12/29/21 20:00 Pulse 67 12/30/21 06:00 Resp 13 12/30/21 06:00 BP 111/58 12/30/21 06:00 Pulse Ox 95 12/30/21 06:00 Discharge Plan Discharge Patient Disposition: Home Condition: Stable Prescriptions: New hydrocodone-acetaminophen 5-325 mg Tablet 1 tab PO Q6H PRN (Reason: Moderate Pain) Qty: 16 0RF cephalexin 500 mg capsule 500 mg PO Q8H Qty: 6 0RF Continued cyanocobalamin (vitamin B-12) 1,000 mcg/mL solution 1,000 mcg SUBCUT .monthly 0RF levothyroxine 88 mcg capsule 88 mcg PO QDAY 0RF turmeric root extract 500 mg capsule 500 mg PO QID 0RF cinnamon bark 500 mg capsule 1,000 mg PO DAILY 0RF amlodipine 10 mg tablet 10 mg PO DAILY 0RF metoprolol tartrate 50 mg tablet 50 mg PO BID Qty: 180 3RF clopidogrel [Plavix] 75 mg tablet 75 mg PO QDAY Qty: 90 3RF atorvastatin [Lipitor] 40 mg tablet 40 mg PO BEDTIME 0RF chlorthalidone 25 mg tablet 25 mg PO DAILY 0RF losartan 100 mg tablet 100 mg PO BEDTIME 0RF Fish Oil Capsule 1,000 mg PO DAILY 0RF Discharge Orders: Discharge Order (Routine); Ordered 12/30/21 Ordered By: Yo Levine Referrals: Yo Levine MD [Physician] - 1 week Discharge Diet: Usual diet Discharge Activity: Limit activity as instructed Patient Instructions: Opioid Safety, Post Anesthesia Care Activity Restrictions/Additional Instructions: May remove bandage in 2 days May begin daily showers in 3 days No swimming or tub baths x 2 weeks No ointments on incision Report drainage, redness, heat, increased pain, or swelling to clinic After removal of surgical dressings, clean groin area carefully and dry completely then reapply gauze to region to prevent maceration. Gauze should be over right groin incision at all times except when cleaning or in shower. Confirmed that area is completely dry prior to applying gauze which may be held in place with undergarments or with small pieces of tape if needed. Discharge Attestations Time Spent in Discharge Care*: less than 30 min Specific Discharge Activities: educating patient, discussing with pcp/other providers, discussing with senior case manager/social workers/dc planners, documenting/other paperwork and evaluating patient/reviewing data Time Spent in Smoking Cessation: 3 to 10 minutes Status at Discharge: Cognitive status at discharge: cognitively intact, Behavioral status at discharge: cooperative, Functional status at discharge: independent ambulation, Overall status at discharge: patient is progressing back to baseline Quality Metrics Clinical Quality Measures [ No reported AMI, CVA or VTE this stay] Coding Level of Care Code Acute Chg FW DC note Diagnoses AAA (abdominal aortic aneurysm) I71.4
[2021-12-30] MEDS: amlodipine 10 mg Tablet PO (08:09)
[2021-12-30] MEDS: metoprolol tartrate 50 mg Tablet PO (08:09)
[2021-12-30] MEDS: pantoprazole DR 40 mg Tablet PO (08:09)
[2021-12-30] MEDS: ondansetron 2 mg/ML SDV 2 mL 4 MG IVP (08:10)
--- NOTE | 2021-12-30 10:06 | PC.CHAP ---
Pastoral Care Encounter/Spiritual Assessment Type of Contact [] Declined boat worker visit [] Patient/Family/Request visit [] Outpatient visit [] Follow-up visit [] Physician referral [] Code/Alert [x] Routine visit [] Staff referral [] Actively dying [] Patient sleeping [] Family support [] [] Out of room [] Palliative care [] [] Receiving care in room [] Pre-surgical visit [] Trauma [] Long length of stay [x] ICU visit [] Other: Relational/Emotional Strength [] Patient feels connected with others/family/visitors/staff [] Distress [] Loneliness/isolation [] Abandonment Spirituality of Patient [] Person of Adriana [] Attends Faith of their Adriana [] Believes in Prayer [] Reads Bible or Worship materials [] There are Spiritual issues to be addressed Aircraft Mechanic Armament Interventions [x] Prayer [] Active listening [] Non-anxious presence [] Spiritual/emotional support [] Crisis/trauma care [] Spiritual counseling [] Bereavement support [] Provided bereavement packet [] Provided Bible/devotional materials [] Provided toy/stuffed animal, coloring book to patient or family member [] Provided Communion [] Anointing/[place] [] Salvation [x] Completed spiritual assessment [] Other: Impact on Illness or Injury [] Angry [] Fearful [] Anxious [] Often cries [] Exhaustion [] Unable to work [] Unable to attend lutheran [] Unable to walk/stand [] Unable to read [] Unable to drive [] Unable to eat/drink [] Unable to sleep [] Unable to be with family [] Patient intubated [] Other: Summary Time spent with patient
--- NOTE | 2021-12-30 12:29 | PC.NURSE ---
Dressings changed by Dr. Levine.
--- NOTE | 2021-12-30 13:18 | PC.NURSE ---
Discharge instructions given to patient and family. IVs removed. Patient and belongings wheeled to private vehicle by this nurse accompanied by family.
== END 2021-12-30 13:15 | disposition home or self-care (01) | DRG 269 ==
LOC: ICU 13:29
PROVIDERS: Admitting Provider Thoracic Surgery (Cardiothoracic Vascular Surgery); PCP Nurse Practitioner Family; Visit Provider Thoracic Surgery (Cardiothoracic Vascular Surgery)
PROC: 04V03ZZ Restriction of Abdominal Aorta, Percutaneous Approach (ICD-10-PCS; principal; 2021-12-29 07:00)
DX: I71.4 Abdominal aortic aneurysm, without rupture (principal); I25.10 Atherosclerotic heart disease of native coronary artery without angina pectoris; Z95.5 Presence of coronary angioplasty implant and graft; I73.9 Peripheral vascular disease, unspecified; E03.9 Hypothyroidism, unspecified; D64.9 Anemia, unspecified; E78.5 Hyperlipidemia, unspecified; N18.30 Chronic kidney disease, stage 3 unspecified; Z87.891 Personal history of nicotine dependence; I12.9 Hypertensive chronic kidney disease with stage 1 through stage 4 chronic kidney disease, or unspecified chronic kidney disease
CPT/HCPCS: 36415; 37220; 80048; 81003; 85025; 85347; 86850; 86900; 86920; 96360; 96361; C1725; C1760; C1769; C1773; C1887; C1894; J0690; J1644; J2270; J2370; J2405; J2704; J2710; J2720; J3010; J3490; J7030; Q9967

== ENCOUNTER → 2022-01-07 10:19 | Outpatient (BNVA) | payer MEDICARE, MEDICAID, SELFPAY | PROVIDERS: PCP Nurse Practitioner Family; Visit Provider Thoracic Surgery (Cardiothoracic Vascular Surgery) | DX: Z98.890 Other specified postprocedural states (principal) | CPT/HCPCS: 99024 ==

== ENCOUNTER 2022-02-08 10:57 | Emergency (ER) | payer MEDICARE, MEDICAID, SELFPAY ==
[2022-02-08 11:09] VITALS: BP 115/69; PULSE 68; RESP 18; TEMP 36.8; O2SAT 96; BMI 25.4
--- NOTE | 2022-02-08 11:46 | ECG_ITS ---
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 Measurements Intervals [place] Rate: 64 P: 63 RI: 174 QRS: 21 QRSD: 89 T: 53 QT: 448 QTc: 462 Interpretive Statements SINUS RHYTHM ST DEVIATION AND MODERATE T-WAVE ABNORMALITY, CONSIDER ANTEROLATERAL ISCHEMIA [-0.1+ mV T-WAVE IN V3-V6] Compared to ECG 12/23/2021 10:27:26 T-wave abnormality now present Possible ischemia now present Sinus bradycardia no longer present Electronically Signed On 02-08-2022 16:24:29 CDT by Unruly Miranda M.D. [id number]
--- NOTE | 2022-02-08 11:46 | XRR_ITS ---
PROCEDURE INFORMATION: Exam: XR Chest Exam date and time: 02/08/2022 12:17 PM Age: 81 years old Clinical indication: Cough and dyspnea; Prior surgery; Surgery date: 1-6 months; Patient HX: PT had abd aortic aneurism procedure on December 29. PT stated she was feeling okay afterwards but last tues started feeling really weak, coughing and decreased blood pressure. ; Additional info: Dyspnea/cough TECHNIQUE: Imaging protocol: XR of the chest. Views: 1 view. COMPARISON: CT angio abdomen pelvis [id number] 11/18/2021 11:27 AM FINDINGS: Lungs: The lungs are somewhat hyperinflated with increased interstitial markings, likely representing COPD. No evidence of focal consolidation to suggest pneumonia. Pleural spaces: Unremarkable. No pleural effusion. No pneumothorax. Heart/Mediastinum: Stable cardiomediastinal silhouette. Bones/joints: Degenerative changes of the spine seen. XR/XR chest 1V portable [id number] IMPRESSION: No evidence of focal consolidation. COPD changes.
--- NOTE | 2022-02-08 11:46 | ECG_ITS ---
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 Measurements Intervals [place] Rate: 63 P: 70 DE: 169 QRS: 20 QRSD: 92 T: 52 QT: 453 QTc: 465 Interpretive Statements SINUS RHYTHM ST DEVIATION AND MODERATE T-WAVE ABNORMALITY, CONSIDER ANTEROLATERAL ISCHEMIA [-0.1+ mV T-WAVE IN V3-V6] Compared to ECG 02/08/2022 11:57:35 No significant changes Electronically Signed On 02-08-2022 16:24:40 CDT by Unruly Miranda M.D. [id number]
--- NOTE | 2022-02-08 12:01 | PC.NURSE ---
ATTEMPTED TO PERFORM IV AND LAB WORK DR. MAN AT BEDSIDE EXAMINING PT.
--- NOTE | 2022-02-08 12:05 | W.ED.GENADLT ---
HPI - General Adult General: Chief complaint: General Medical Stated complaint: Dr Sosa sent pt doen't know why Time Seen by Provider: 02/08/22 11:43 Source: patient Mode of arrival: ambulatory Limitations: no limitations History of Present Illness: 81-year-old female presents emergency room complaining of just generally not feeling well and poor appetite for last week. Your blood pressures been running little bit on the lower side she has not been taking her amlodipine because her monitoring has a blood pressure below 1 colic. She denies any chest or abdominal pain no dysuria urgency or frequency no fever sweats or chills patient had a AAA repair on 12/29/2021. No complications from that procedure. She is not initiated any new medications recently. No fever when she arrived here today. Onset (ago): week(s) (1) Severity: moderate Quality: aching Relieving factors: none Exacerbating factors: none Associated symptoms: Reports malaise, nausea and weakness; Deny chest pain, confusion, cough, diaphoresis, decreased appetite, dyspnea, fevers/chills, headache(s), rash, palpitations, seizures, short of breath, syncope or vomiting Treatments prior to arrival: none Review of Systems Const: Reports: change in appetite, fatigue and malaise; Denies: fever(s), chills, body aches or diaphoresis ENMT: Denies: throat pain, ear or mastoid pain, nasal discharge or nasal congestion Card: Denies: chest pain, palpitations or syncope Resp: Denies: dyspnea GI: Reports: nausea; Denies: abdominal pain or vomiting : Denies: flank pain, difficulty voiding, dysuria, urinary frequency or urinary urgency Musc: Denies: neck pain Skin/Breast: Denies: rash Neuro: Denies: headache(s), numbness in extremities or confusion PFSH ED PFSH: Medical History AAA (abdominal aortic aneurysm) Anemia Arteriosclerotic heart disease (ASHD) Carotid stenosis Hyperlipemia Hypertension Valvular heart disease Patient was found to have mild to moderate mitral regurgitation by the echocardiogram, on 03/07/2020 Surgical History H/O cataract extraction History of cholecystectomy History of tubal ligation Family History Mother CAD (coronary artery disease) Family/Other CAD (coronary artery disease) Father Dementia Other Hypertension Denies family history of Diabetes Clotting disorder Chronic kidney disease (CKD) Suicide Anesthesia complication Bleeding disorder Lung disease Cancer Stroke Social History Smoking and tobacco status: former smoker Quit status (tobacco): has quit using tobacco Year quit tobacco: 2010 Former quit date comment: Smoked 1 pack per day x 51 years Alcohol intake: never Physical Exam Const: COMMON NORMALS: no acute distress GENERAL APPEARANCE: cooperative and comfortable ORIENTATION/CONSCIOUSNESS: Yes awake, Yes oriented to person, Yes oriented to place and Yes oriented to time HENMT: COMMON NORMALS: normocephalic, atraumatic and hearing grossly normal bilaterally HEAD & SCALP: normocephalic and atraumatic Resp: COMMON NORMALS: normal respiratory effort, No retractions, No use of accessory muscles and clear to auscultation bilaterally AUSCULTATION: clear to auscultation bilaterally Cardio: COMMON NORMALS: regular rate, regular rhythm and No murmurs present (Cardio) RATE: regular rate RHYTHM: regular rhythm GI: COMMON NORMALS: Soft to palpation and No hepatosplenomegaly present AUSCULTATION: Yes normoactive bowel sounds PALPATION: Yes Soft to palpation, No Tenderness to palpation present (GI), No Guarding due to palpation present (GI) and Yes No hepatosplenomegaly present Extremity: COMMON NORMALS: normal to inspection, capillary refill normal, no clubbing, cyanosis or edema, no calf tenderness and no pedal edema Neuro: SENSORIUM/ORIENTATION: Yes oriented to person, Yes oriented to place and Yes oriented to time Skin: COMMON NORMALS: no rashes or lesions noted GENERAL SKIN EXAM: no rashes or lesions noted Course Vital Signs: Vital signs: Vital Signs Temperature 98.2 F 02/08/22 11:09 Pulse Rate 62 02/08/22 15:30 Respiratory Rate 20 H 02/08/22 15:30 Blood Pressure 132/57 02/08/22 15:30 Pulse Oximetry 92 02/08/22 15:30 MDM - General Adult Medical Decision Making Patient is anemic but is actually improved from last time she was checked. Because of her recent vascular repair of her AAA we did do a CTA of her abdomen which was unremarkable for anything that appears to be acute. Patient mention her she had a sore throat but she states that resolved a couple of days ago already and on exam her throat appears normal. We will go ahead and discharge her home have her follow-up with her primary care doctor on her anemia which is chronic she has been told in the past she has B12 and iron deficiency anemia which would fit she has a normocytic anemia today return if she has further problems. Medical Records I reviewed the patient's medical records. Lab Data I reviewed the patient's lab results. : 02/08/22 12:17 02/08/22 12:17 Radiology Impressions Chest X-Ray 02/08/22 11:46 IMPRESSION: No evidence of focal consolidation. COPD changes. Abdomen/Pelvis CTA 02/08/22 12:32 IMPRESSION: 1. Normal-appearing aortic endograft repair is new from previous. Aneurysm sac is stable. No evidence of progression. Normal biiliac extension. 2. No other significant interval changes. 3. Sigmoid diverticulosis. No evidence of acute diverticulitis. 4. No evidence of small or large bowel obstruction. 5. LEFT adnexal cystic lesion is stable since November 18, 2021 measuring 2.8 cm. 6. Prior cholecystectomy. 7. Bilateral renal cysts. Laboratory Results WBC 4.4 10^3/uL (4.0-10.0) 02/08/22 12:17 RBC 3.35 10^6/uL (4.1-5.3) L 02/08/22 12:17 Hgb 9.2 g/dL (11.5-15.3) L 02/08/22 12:17 Hct 28.5 % (37.0-47.0) L 02/08/22 12:17 MCV 85.1 fl (81-99) 02/08/22 12:17 MCH 27.5 pg (28.0-34.0) L 02/08/22 12:17 MCHC 32.3 g/dL (30.0-36.0) 02/08/22 12:17 RDW 14.4 % (12.1-15.1) 02/08/22 12:17 Plt Count 222 10^3/cmm (130-400) 02/08/22 12:17 MPV 12.4 fL (7.4-10.4) H 02/08/22 12:17 Neut % (Auto) 72.2 % 02/08/22 12:17 Lymph % (Auto) 8.9 % 02/08/22 12:17 Hemphill % (Auto) 16.9 % 02/08/22 12:17 Eos % (Auto) 0.9 % 02/08/22 12:17 Baso % (Auto) 0.2 % 02/08/22 12:17 Neut # (Auto) 3.17 10^3/uL (1.8-7.7) 02/08/22 12:17 Lymph # (Auto) 0.4 10^3/uL (0.8-4.8) L 02/08/22 12:17 Hemphill # (Auto) 0.7 10^3/uL (0.2-0.9) 02/08/22 12:17 Eos # (Auto) 0.0 10^3/uL (0.0-0.8) 02/08/22 12:17 Baso # (Auto) 0.0 10^3/uL (0.0-0.1) 02/08/22 12:17 Nucleated RBC % (auto) 0 % 02/08/22 12:17 Nucleated RBCs # 0.0 /100WBC 02/08/22 12:17 Sodium 135 mmol/L (136-145) L 02/08/22 12:17 Potassium 3.0 mmol/L (3.5-5.1) L 02/08/22 12:17 Chloride 98 mmol/L (98-107) 02/08/22 12:17 Carbon Dioxide 22 mmol/L (22-29) 02/08/22 12:17 Anion Gap 18.0 (5-19) 02/08/22 12:17 BUN 16 mg/dL (8-23) 02/08/22 12:17 Creatinine 1.5 mg/dL (0.5-0.9) H 02/08/22 12:17 GFR Calculation Not Reportable 02/08/22 12:17 Glucose 115 mg/dL (65-115) 02/08/22 12:17 Calculated Osmolality 282 mOsm/kg (285-295) L 02/08/22 12:17 Calcium 8.7 mg/dL (8.5-10.5) 02/08/22 12:17 Total Bilirubin 0.5 mg/dL (0.15-1.2) 02/08/22 12:17 AST 14 U/L (0-32) 02/08/22 12:17 ALT 8 U/L (0-33) 02/08/22 12:17 Alkaline Phosphatase 107 IU/L (35-105) H 02/08/22 12:17 Troponin T Baseline 17 ng/L (0-10) H 02/08/22 12:17 Troponin T 120 Minute 15.29 ng/L (0-10) H 02/08/22 14:12 Delta Troponin T -1.71 ABS# (0-10) L 02/08/22 14:12 Total Protein 7.1 g/dL (6.6-8.7) 02/08/22 12:17 Albumin 3.3 g/dL (3.5-5.2) L 02/08/22 12:17 Globulin 3.8 g/dL (1.3-4.6) 02/08/22 12:17 Discharge Plan Discharge Patient Disposition: Home Clinical Impression: Fatigue, Anemia Condition: Stable Prescriptions: No Action cyanocobalamin (vitamin B-12) 1,000 mcg/mL solution 1,000 mcg SUBCUT .monthly 0RF levothyroxine 88 mcg capsule 88 mcg PO QDAY 0RF amlodipine 10 mg tablet 10 mg PO DAILY 0RF Dialyvite Vitamin D3 Max 1,250 mcg (50,000 unit) tablet 1,250 mcg PO .WEEKLY 0RF clopidogrel [Plavix] 75 mg tablet 75 mg PO QDAY Qty: 90 3RF metoprolol tartrate 50 mg tablet 50 mg PO BID 0RF albuterol sulfate 90 mcg/actuation Hfa Aerosol Inhaler 2 puff INHALATION Q6H PRN (Reason: Shortness Of Breath) 0RF atorvastatin [Lipitor] 40 mg tablet 40 mg PO BEDTIME 0RF chlorthalidone 25 mg tablet 25 mg PO DAILY 0RF losartan 100 mg tablet 100 mg PO BEDTIME 0RF Discharge Orders: Discharge ED (Routine); Ordered 02/08/22 Ordered By: Iron Pittman Referrals: Lyn Lynne, [facility] [Primary Care Provider] - Discharge Diet: Usual diet Patient Instructions: Opioid Safety Coding Level of Care Code ED Medical Genetics Director for g Fwd Exam Detailed
--- NOTE | 2022-02-08 12:10 | PC.NURSE ---
PT PLACED ON CONTINUOS SPO2,NIBP, AND CM.
--- NOTE | 2022-02-08 12:18 | PC.NURSE ---
XRAY AT BEDSIDE PERFORMING PORTABLE CXR.
[2022-02-08 12:22] LABS: Basophils % 0.2 %; Eosinophils % 0.9 %; Hematocrit 28.5 % (37.0-47.0); Hemoglobin 9.2 g/dL (11.5-15.3); Lymphocytes # 0.4 10^3/uL (0.8-4.8); Lymphocytes % 8.9 %; Mean Corpuscular HGB Conc 32.3 g/dL (30.0-36.0); Mean Corpuscular Hemoglobin 27.5 pg (28.0-34.0); Mean Corpuscular Volume 85.1 fl (81-99); Mean Platelet Volume 12.4 fL (7.4-10.4); Monocytes # 0.7 10^3/uL (0.2-0.9); Monocytes % 16.9 %; Neutrophils # 3.17 10^3/uL (1.8-7.7); Neutrophils % 72.2 %; Nucleated Red Blood Cells % 0 %; Platelet Count 222 10^3/cmm (130-400); Red Blood Count 3.35 10^6/uL (4.1-5.3); Red Cell Distribution Width 14.4 % (12.1-15.1); White Blood Count 4.4 10^3/uL (4.0-10.0)
--- NOTE | 2022-02-08 12:32 | CT_ITS ---
WS: [id number] CTA ABDOMEN TECHNIQUE: Noncontrast plus contrast enhanced CTA of the abdominal aorta with coronal and sagittal re formatted images and additional MIP Images. CLINICAL INFORMATION: abd pain/recent AAA repair COMPARISON: November 18, 2021 DLP: 509.[address] scans at [facility] use at least one of these dose optimization techniques: automated e xposure control; mA and/or kV adjustment per patient size (includes targeted exams where dose is matc hed to clinical indication); or iterative reconstruction. FINDINGS: Interval postoperative changes aortic endograft repair with biiliac extension. Aneurysm sac today dolores sures 5.3 x 5.5 x 6.7 cm AP by transverse by craniocaudal not significantly changed since the prior e xamination. No evidence of progression. Normal common iliac arteries. Lung bases are well aerated. Liver is normal in appearance. Small hepatic cyst is unchanged. Fatty at rophy of the pancreas. Prior cholecystectomy. Adrenal glands are normal. No hydronephrosis in either kidney. Bilateral renal cysts. Normal spleen. Tiny fat-containing umbilical hernia. Sigmoid diverticulosis. No evidence of acute diverticulitis. Mild stenosis of the celiac and SMA origins appear patent. Renal arteries are patent. LEFT adnexal cy stic lesion is stable since November 18, [address]/CT angio abdomen pelvis [id number] IMPRESSION: 1. Normal-appearing aortic endograft repair is new from previous. Aneurysm sac is stable. No evidence of progression. Normal biiliac extension. 2. No other significant interval changes. 3. Sigmoid diverticulosis. No evidence of acute diverticulitis. 4. No evidence of small or large bowel obstruction. 5. LEFT adnexal cystic lesion is stable since November 18, 2021 measuring 2.8 cm. 6. Prior cholecystectomy. 7. Bilateral renal cysts.
[2022-02-08 12:54] LABS: Alanine Aminotransferase 8 U/L (0-33); Albumin Level 3.3 g/dL (3.5-5.2); Alkaline Phosphatase 107 IU/L (35-105); Aspartate Amino Transferase 14 U/L (0-32); Blood Urea Nitrogen 16 mg/dL (8-23); Calcium 8.7 mg/dL (8.5-10.5); Carbon Dioxide 22 mmol/L (22-29); Chloride 98 mmol/L (98-107); Globulin 3.8 g/dL (1.3-4.6); Glucose 115 mg/dL (65-115); Osmolality Calculated 282 mOsm/kg (285-295); Sodium 135 mmol/L (136-145); Total Bilirubin 0.5 mg/dL (0.15-1.2); Total Protein 7.1 g/dL (6.6-8.7)
[2022-02-08 12:56] LABS: Troponin(5th) Baseline 17 ng/L (0-10)
[2022-02-08] MEDS: iohexol 300 mg/mL 100 mL Btl IV (13:42)
--- NOTE | 2022-02-08 13:46 | ECG_ITS ---
[facility] Test Date: 2022-02-08 Pat Name: Antoinette Camacho Department: Room: Gender: Female Integration Technician: : 1940 Requested By: Iron Latif Order Number: [id number] Reading MD: Unruly Miranda M.D. Measurements Intervals [place] Rate: 65 P: 65 WV: 179 QRS: 18 QRSD: 97 T: 46 QT: 464 QTc: 483 Interpretive Statements SINUS RHYTHM ST DEVIATION AND MODERATE T-WAVE ABNORMALITY, CONSIDER LATERAL ISCHEMIA [-0.1+ mV T-WAVE IN I/aVL/V5/V6] Compared to ECG 02/08/2022 11:58:23 No significant changes Electronically Signed On 02-08-2022 16:34:44 CDT by Unruly Miranda M.D. [id number]
--- NOTE | 2022-02-08 14:38 | PC.NURSE ---
WHILE AT BEDSIDE PT IS IN NAD. PT UPDATED ON CARE. PT DOES NOT VERBALIZE ANY FURTHER NEEDS AT THIS TIME.
[2022-02-08 14:45] LABS: Troponin 5 2HR 15.29 ng/L (0-10)
[2022-02-08 14:46] LABS: Troponin 5 2HR Delta -1.71 ABS# (0-10)
[2022-02-08 15:30] VITALS: BP 132/57; PULSE 62; RESP 20; O2SAT 92
[2022-02-08 16:47] VITALS: BP 119/48; PULSE 66; RESP 21; O2SAT 95
== END 2022-02-08 16:49 | disposition home or self-care (01) ==
PROVIDERS: Emergency Provider Family Medicine; PCP Nurse Practitioner Family
DX: R53.83 Other fatigue (principal); D64.9 Anemia, unspecified; I10 Essential (primary) hypertension; E78.5 Hyperlipidemia, unspecified
CPT/HCPCS: 36415; 71045; 74174; 80053; 84484; 85025; 93005; 99284; Q9967

== ENCOUNTER → 2022-02-18 14:02 | Outpatient (BNVA) | payer MEDICARE, MEDICAID, SELFPAY | PROVIDERS: PCP Nurse Practitioner Family; Visit Provider Thoracic Surgery (Cardiothoracic Vascular Surgery) | DX: Z98.890 Other specified postprocedural states (principal); Z86.79 Personal history of other diseases of the circulatory system | CPT/HCPCS: 99024; 99213 ==

== ENCOUNTER → 2022-05-25 11:12 | Outpatient (BNVA) | payer MEDICARE, MEDICAID, SELFPAY | PROVIDERS: Visit Provider Internal Medicine Cardiovascular Disease | DX: I65.22 Occlusion and stenosis of left carotid artery (principal); Z98.890 Other specified postprocedural states; Z86.79 Personal history of other diseases of the circulatory system; I05.9 Rheumatic mitral valve disease, unspecified; I10 Essential (primary) hypertension; E78.2 Mixed hyperlipidemia; I25.10 Atherosclerotic heart disease of native coronary artery without angina pectoris; D64.9 Anemia, unspecified; Z87.891 Personal history of nicotine dependence | CPT/HCPCS: 99214 ==

== ENCOUNTER 2022-07-21 11:42 | Outpatient (CLI) | payer MEDICARE, MEDICAID, SELFPAY ==
--- NOTE | 2022-07-21 12:15 | USCV_ITS ---
Antoinette Camacho Age: 82 Gender: F : 1940 Exam Date: 07/21/2022 12:04 Ordering Phys: Zena Hernandez MD ([email or web address]) Technologist: PRAMOD Exam Location: [facility] [place] Indication: MITRAL REGURG BP: 132 / 62 HR: 38 Rhythm: Sinus Technical Quality: Adequate MEASUREMENTS (Male / Female) Normal Values 2D ECHO LVOT Diameter 2.0 cm LV Ejection Fraction MOD 2C 58.8 % LV Ejection Fraction 2C AL 58.7 % LA Diameter 3.3 cm LA Width 3.5 cm LA Height 4.7 cm RA Width 3.1 cm RA Height 4.5 cm Aorta at Sinotubular Diameter 1.6 cm IVC Diameter 1.3 cm M-MODE Aortic Annulus Diameter 2.4 cm LA Ao Ratio MM 1.3 MV E Point Septal Separation 0.8 cm DOPPLER AV Peak Velocity 287.7 cm/s LVOT Peak Velocity 99.0 cm/s AV Area Cont Eq vti 1.1 cm squared AV Area Cont Eq pk 1.1 cm squared MV Peak Velocity 113.0 cm/s MV Area PHT 3.3 cm squared Mitral E to A Ratio 0.7 MV E' Velocity 42.5 cm/s Mitral E to MV E' Ratio 6.9 Mitral E to LV E' Lateral Ratio 6.6 Mitral E to LV E' Septal Ratio 7.3 TR Peak Velocity 246.5 cm/s TR Peak Gradient 24.3 mmHg TR Mean Velocity 212.4 cm/s TR Mean Gradient 19.9 mmHg TR Velocity Time Integral 91.2 cm TV Peak E Velocity 53.0 cm/s Right Atrial Pressure 3.0 mmHg Pulmonary Artery Systolic Pressu 27.3 mmHg PV Peak Velocity 62.0 cm/s RV Acceleration Time 0.2 s RV Ejection Time 0.4 s RV AcT/ET 0.5 FINDINGS Left Ventricle Normal left ventricular size and systolic function, EF 64 %. No regional wall motion abnormalities. Right Ventricle The right ventricle is normal in size and function. Right Atrium The right atrium is normal in size. Left Atrium Mildly increased left atrial size. Mitral Valve Moderate mitral valve regurgitation. Aortic Valve Moderate aortic valve regurgitation. Moderate aortic valve stenosis, mean gradient 15 mmHg, CATHY 1.1 cm squared. Peak aortic velocity of 2.98 m/s with a peak gradient of 36 mmHg Tricuspid Valve Trace to mild tricuspid valve regurgitation. Pulmonic Valve No gross abnormalities noted Pericardium Normal pericardium without effusion. Aorta Normal aortic annulus size. IVC Normal inferior vena cava. CONCLUSIONS Normal left ventricular size and systolic function, EF 64 %. No regional wall motion abnormalities. Mildly increased left atrial size. Moderate mitral valve regurgitation. Moderate aortic valve regurgitation. Moderate aortic valve stenosis, mean gradient 15 mmHg, CATHY 1.1 cm squared. (Peak aortic velocity of 2.98 m/s with a peak gradient of 36 mmHg. ) Trace to mild tricuspid valve regurgitation. Estimated pulmonary artery peak systolic pressure 27 mmHg There is no pericardial effusion. There are no intracardiac masses. Compared to the study from 03/07/2020 there is slight worsening of the mitral and aortic regurgitation and development of aortic valve stenosis. Dr Zena Hernandez MD [facility] (Electronically Signed) Final Date: 22 July 2022 20:00 S
== END 2022-07-21 11:43 | disposition home or self-care (01) ==
LOC: RAD 11:43
PROVIDERS: PCP Nurse Practitioner Family; Visit Provider Internal Medicine Cardiovascular Disease
DX: I08.3 Combined rheumatic disorders of mitral, aortic and tricuspid valves (principal); R06.09 Other forms of dyspnea
CPT/HCPCS: 93306

== ENCOUNTER 2022-08-12 10:50 | Outpatient (CLI) | payer MEDICARE, MEDICAID, SELFPAY ==
--- NOTE | 2022-08-12 11:15 | USCV_ITS ---
Antoinette Camacho Age: 82 Gender: F : 1940 Exam Date: 08/12/2022 10:59 Ordering Phys: Yo Levine MD (Andy) ([email or web address]/[facility]) Technologist: Mushtaq Husain Exam Location: [facility] [place] Indication: follow up ao stent HISTORY: Diameter (cm) AP x Transverse x Length Velocity (cm/s) Waveform Prox Aorta: x x Mid Aorta: x x Distal Aorta: x x Right Iliac Prox: x x Left Iliac Prox: x x Stent Prox Landing 1.94 x 1.74 x 108.10 Aneurysmal Sac Max 4.90 x 6.10 x 65.10 Lt Lat Sac Dim 1.72 Rt Lat Sac Dim 1.16 Stent Dist Landing 1.97 2.00 x 48.30 x Right Iliac Stent 1.20 x 1.42 x 75.30 Left Iliac Stent 1.35 x 1.63 x 101.50 Right Renal Art 66.20 Left Renal Art 176.90 FINDINGS: Infrarenal aortic aneurysm sac measuring 4.9 x 6.1 cm Normal velocities in the stent graft, as mentioned above Iliac stent graft measurements as mentioned above CONCLUSIONS 1. Patent aortoiliac stent grafts with no evidence of stenosis 2. Landing zones appear to be patent 3. The infrarenal aortic aneurysm sac measured 4.9 x 6.1 cm 4. Cannot identify any endoleak, based on the color-flow Doppler study. Compared to the study from 11/12/2021, the horizontal diameter of the aneurysm sac is slightly increased. Consider CTA, better evaluate the aneurysm sac and for endoleak Dr Zena Hernandez MD [facility] (Electronically Signed) Final Date: 16 August 2022 18:16 S
== END 2022-08-12 10:51 | disposition home or self-care (01) ==
LOC: RAD 10:51
PROVIDERS: PCP Nurse Practitioner Family; Visit Provider Thoracic Surgery (Cardiothoracic Vascular Surgery)
DX: I71.40 Abdominal aortic aneurysm, without rupture, unspecified (principal); Z95.828 Presence of other vascular implants and grafts
CPT/HCPCS: 93978

== ENCOUNTER 2022-09-03 10:16 | Outpatient (CLI) | payer MEDICARE, MEDICAID, SELFPAY ==
--- NOTE | 2022-09-03 10:30 | CT_ITS ---
WS: [id number] CT ABDOMEN AND PELVIS NONCONTRAST HISTORY: AAA Noncontrast examination performed due to renal function. TECHNIQUE: Imaging performed through the abdomen and pelvis. Coronal and sagittal reformats are submi tted. All CT scans at [facility] use at least one of these dose optimization techniques: auto mated exposure control; mA and/or kV adjustment per patient size (includes targeted exams where dose is matched to clinical indication); or iterative reconstruction. DLP: 855.47 mGy.cm COMPARISON: 02/08/2022 and ultrasound 08/12/2022 Lower thorax: Chronic emphysema. Mild cardiomegaly. Liver: Normal size. No change in the cyst LEFT lobe. Gallbladder: Prior cholecystectomy. Pancreas: Normal size and attenuation. Normal pancreatic duct. No pancreatitis or mass. Spleen: Normal. Adrenal glands: Normal. No mass. Right kidney: Normal size kidney. Multiple low-attenuation masses likely cysts as previously describe d. Left kidney: Normal size with low-attenuation masses which are cysts as previously described. Aorta: Status post endovascular graft repair. The unga aneurysm maximum diameter is 5.4 cm which is unchanged. There is no periaortic hematoma. No displacement of the calcifications in the wall of aor ta. Endovascular graft extends into the iliac arteries. No aneurysms. No free fluid, intraperitoneal air or significant lymphadenopathy. GI tract: Normal appendix. No GI tract obstruction or diverticulosis. Abdominal wall: Small umbilical hernia contains fat only. Pelvis: Calcifications in the iliac arteries. Negative urinary bladder. Osseous structures: Thoracolumbar scoliosis. CT/CT abdomen pelvis wo con [id number] IMPRESSION: 1. Stable size of the unga abdominal aortic aneurysm at 5.3 cm. 2. Endovascular graft repair appears unchanged in size and appearance with bii lia extension since 02/08/2022.
[2022-09-03 13:43] LABS: Blood Urea Nitrogen 20 mg/dL (8-23)
== END 2022-09-03 10:17 | disposition home or self-care (01) ==
LOC: RAD 10:16
PROVIDERS: PCP Nurse Practitioner Family; Visit Provider Internal Medicine Cardiovascular Disease
DX: Z01.812 Encounter for preprocedural laboratory examination (principal); I71.40 Abdominal aortic aneurysm, without rupture, unspecified
CPT/HCPCS: 74176; 82565; 84520

== ENCOUNTER → 2022-11-23 11:21 | Outpatient (BNVA) | payer MEDICARE, MEDICAID, SELFPAY | PROVIDERS: PCP Nurse Practitioner Family; Visit Provider Internal Medicine Cardiovascular Disease | DX: Z98.890 Other specified postprocedural states (principal); Z86.79 Personal history of other diseases of the circulatory system; I65.22 Occlusion and stenosis of left carotid artery; E78.2 Mixed hyperlipidemia; I25.10 Atherosclerotic heart disease of native coronary artery without angina pectoris; I38 Endocarditis, valve unspecified; I10 Essential (primary) hypertension; Z87.891 Personal history of nicotine dependence | CPT/HCPCS: 99214 ==

== ENCOUNTER 2022-12-16 13:55 | Outpatient (CLI) | payer MEDICARE, MEDICAID, SELFPAY ==
--- NOTE | 2022-12-16 14:30 | CT_ITS ---
WS: [id number] CT ABDOMEN PELVIS TECHNIQUE: Noncontrast CT of the abdomen and pelvis with coronal and sagittal reformatted images. CLINICAL INFORMATION: AAA, continuing evaluation COMPARISON: None. DLP: 303.[address] scans at [facility] use at least one of these dose optimization techniques: automated e xposure control; mA and/or kV adjustment per patient size (includes targeted exams where dose is matc hed to clinical indication); or iterative reconstruction. FINDINGS: Noncontrast aortic endograft with biiliac extension. Excluded aneurysm sac measures 4.4 x 5.1 x 7.1 c m AP by transverse by craniocaudal. Lung bases are well aerated. Small hepatic cyst. Normal GE juncti on. Noncontrast pancreas is normal. Adrenal glands are normal. Bilateral renal cortical atrophy. No h ydronephrosis. Bilateral renal cysts largest in the RIGHT measuring 2.6 cm and largest in the LEFT me asuring 3.2 CM. No hydronephrosis in either kidney. No obstructing renal or ureteral calculi. Rectosigmoid constipation. Sigmoid diverticulosis. No evidence of acute diverticulitis. Moderate spon dylitic changes lumbar spine. CT/CT abdomen pelvis wo con [id number] IMPRESSION: 1. Noncontrast aortic endograft with biiliac extension. Excluded aneurysm sac is decreased in size compared to previous today measuring 4.4 x 5.1 x 7.1 cm AP by transverse by craniocaudal. Previously this measured 5.3 x 5.5 x 7.4 cm 2. No other significant interval changes.
== END 2022-12-16 13:56 | disposition home or self-care (01) ==
LOC: RAD 13:58
PROVIDERS: PCP Nurse Practitioner Family; Visit Provider Internal Medicine Cardiovascular Disease
DX: I71.40 Abdominal aortic aneurysm, without rupture, unspecified (principal); I10 Essential (primary) hypertension; I25.10 Atherosclerotic heart disease of native coronary artery without angina pectoris
CPT/HCPCS: 74176

== ENCOUNTER → 2023-06-14 11:31 | Outpatient (BNVA) | payer MEDICARE, MEDICAID, SELFPAY | PROVIDERS: PCP Nurse Practitioner Family; Visit Provider Internal Medicine Cardiovascular Disease | DX: I65.22 Occlusion and stenosis of left carotid artery (principal); Z98.890 Other specified postprocedural states; Z86.79 Personal history of other diseases of the circulatory system; I38 Endocarditis, valve unspecified; I10 Essential (primary) hypertension; E78.2 Mixed hyperlipidemia; I25.10 Atherosclerotic heart disease of native coronary artery without angina pectoris; Z87.891 Personal history of nicotine dependence | CPT/HCPCS: 99214 ==

== ENCOUNTER 2023-06-24 12:17 | Outpatient (CLI) | payer MEDICARE, MEDICAID, SELFPAY ==
--- NOTE | 2023-06-24 13:00 | USCV_ITS ---
Antoinette Camacho Age: 82 Gender: F : 1940 Exam Date: 06/24/2023 12:58 Ordering Phys: Zena Hernandez MD ([email or web address]/[facility]) Technologist: DIONICIO Exam Location: [facility] [place] Indication: Stenosis Risk Factors: Previous Vascular Surgery: Right Brachial BP: / Left Brachial BP: / Right Left Velocity (cm/s) Spectral Plaque Velocity (cm/s) Spectral Plaque Syst/Diast Broadening Syst/Diast Broadening 51.60/ 9.10 Prox CCA 52.80 / 11.70 48.60/ 10.20 Mid CCA 60.60 / 11.70 55.70/ 15.70 Distal CCA 60.60 / 15.50 48.90/ 13.20 Prox ICA 69.80 / 14.10 116.90/25.40 Mid ICA 66.50 / 14.90 103.60/27.60 Distal ICA 68.60 / 16.30 72.00 ECA 102.50 2.10 ICA/CCA 1.15 Antegrade Vertebral Antegrade 50.50/ 10.10 cm/s 49.60/ 14.50 cm/s Tri Subclavian Tri 105.2 102.9 0 0 CONCLUSIONS Right ICA stenosis <50%. Moderate calcified atheromatous plaque right carotid bulb/ICA. Left ICA stenosis <50%. Moderate calcified atheromatous plaque left carotid bulb/ICA. Intimal thickening in the common carotid arteries and internal carotid arteries bilaterally. Normal antegrade Doppler flow noted in the right vertebral artery. Normal antegrade Doppler flow noted in the left vertebral artery. Javi Ohara MD (Electronically Signed) Final Date: 24 June 2023 16:14 S
--- NOTE | 2023-06-24 13:30 | USCV_ITS ---
Camacho Antoinette Age: 82 Gender: F : 1940 Exam Date: 06/24/2023 12:48 Ordering Phys: Zena Hernandez MD ([email or web address]/[facility]) Technologist: DIONICIO Exam Location[place] [facility] [place] Indication: AAA Repair HISTORY: Diameter (cm) AP x Transverse x Length Velocity (cm/s) Waveform Prox Aorta: 1.74 x 2.10 x 43.60 Mid Aorta: 1.60 x 2.06 x 123.50 Distal Aorta: 3.71 x 4.95 x 7.46 86.80 Right Iliac Prox: 0.78 x 1.15 x 110.70 Left Iliac Prox: 1.05 x 1.41 x 118.20 Stent Prox Landing x x Aneurysmal Sac Max x x Lt Lat Sac Dim Rt Lat Sac Dim Stent Dist Landing x x Right Iliac Stent x x Left Iliac Stent x x Right Renal Art Left Renal Art FINDINGS: comparison 2021 CONCLUSIONS Repaired Distal AAA with aneurysm sac measuring 3.7 x 4.9 x 7.4cm AP x trans x CC. This has decreased in size Patent aortic endograft with bi-iliac extension. Normal velocities. Normal iliac endografts Moderate atheromatous disease Javi Ohara MD (Electronically Signed) Final Date: 24 June 2023 16:09 S
== END 2023-06-24 12:18 | disposition home or self-care (01) ==
LOC: RAD 12:17
PROVIDERS: PCP Nurse Practitioner Family; Visit Provider Internal Medicine Cardiovascular Disease
DX: I65.22 Occlusion and stenosis of left carotid artery (principal); I77.9 Disorder of arteries and arterioles, unspecified; Z98.890 Other specified postprocedural states; Z86.79 Personal history of other diseases of the circulatory system; I71.40 Abdominal aortic aneurysm, without rupture, unspecified
CPT/HCPCS: 93880; 93978

== ENCOUNTER → 2024-01-03 09:41 | Outpatient (BNVA) | payer MEDICARE, MEDICAID, SELFPAY | PROVIDERS: PCP Nurse Practitioner Family; Visit Provider Internal Medicine Cardiovascular Disease | DX: I25.10 Atherosclerotic heart disease of native coronary artery without angina pectoris (principal); E78.2 Mixed hyperlipidemia; I10 Essential (primary) hypertension; I71.43 Infrarenal abdominal aortic aneurysm, without rupture; I35.0 Nonrheumatic aortic (valve) stenosis; Z87.891 Personal history of nicotine dependence | CPT/HCPCS: 99214 ==

== ENCOUNTER 2024-02-02 11:45 | Outpatient (CLI) | payer MEDICARE, MEDICAID, SELFPAY ==
--- NOTE | 2024-02-02 12:15 | USCV_ITS ---
Antoinette Camacho Age: 83 Gender: F : 1940 Exam Date: 02/02/2024 11:59 Ordering Phys: Zena Hernandez MD ([email or web address]) Technologist: PRAMOD Exam Location: [facility] [place] Indication: AVS BP: 120 / 50 HR: 58 Rhythm: Sinus Technical Quality: Adequate MEASUREMENTS (Male / Female) Normal Values 2D ECHO LV Diastolic Diameter PLAX 5.1 cm 4.2 - 5.9 / 3.9 - 5.3 cm IVS Diastolic Thickness 1.3 cm 0.6 - 1.0 / 0.6 - 0.9 cm IVS Systolic Thickness 1.9 cm LVPW Diastolic Thickness 2.2 cm 0.6 - 1.0 / 0.6 - 0.9 cm LVPW Systolic Thickness 2.6 cm LVOT Diameter 2.0 cm LV Ejection Fraction 2D Teich 62.0 % LV Ejection Fraction MOD 2C 58.8 % LV Ejection Fraction 2C AL 59.5 % LA Diameter 3.2 cm RA Systolic Volume 4C AL 23.6 ml RA Systolic Volume 4C MOD 23.2 ml LA Sys Volume AL 25.3 cm cubed LA Sys Volume Index AL 15.6 cm cubed/m squared Aorta at Sinotubular Diameter 1.8 cm IVC Diameter 1.5 cm M-MODE LA Ao Ratio MM 1.2 AV Cusp Separation MM 1.1 cm DOPPLER AV Peak Velocity 375.2 cm/s LVOT Peak Velocity 104.0 cm/s AV Area Cont Eq vti 0.8 cm squared AV Area Cont Eq pk 0.9 cm squared MV Peak Velocity 386.0 cm/s MV Area PHT 2.9 cm squared Mitral E to A Ratio 0.7 TR Peak Velocity 294.0 cm/s TR Peak Gradient 34.6 mmHg TR Mean Velocity 223.0 cm/s TR Mean Gradient 22.6 mmHg TR Velocity Time Integral 91.6 cm TV Peak E Velocity 70.0 cm/s Right Atrial Pressure 3.0 mmHg Pulmonary Artery Systolic Pressu 37.6 mmHg PV Peak Velocity 96.0 cm/s RV Ejection Time 0.4 s FINDINGS Left Ventricle Normal left ventricular size and systolic function, EF 60%.. No regional wall motion abnormalities. Right Ventricle The right ventricle is normal in size and function. Right Atrium Mildly increased right atrial size. Left Atrium Mildly increased left atrial size. Mitral Valve Moderate mitral valve regurgitation. Aortic Valve Severe low gradient aortic valve stenosis with a peak velocity of 3.85 m/s with a peak gradient of 59 and a mean gradient of 33 mmHg. The valve area is 0.8 cm squared. Tricuspid Valve No gross abnormalities no Pulmonic Valve Mild pulmonary valve regurgitation. Pericardium Normal pericardium without effusion. Aorta Normal ascending aorta dimension. IVC The inferior vena cava appears normal. CONCLUSIONS Normal left ventricular size and systolic function, EF 60%.. No regional wall motion abnormalities. Severe low gradient aortic valve stenosis with a peak velocity of 3.85 m/s with a peak gradient of 59 and a mean gradient of 33 mmHg. The valve area is 0.8 cm squared. Moderate mitral valve regurgitation. Mild biatrial enlargement Normal LV size ejection fraction of 60%. No gross wall motion abnormalities estimated PA pressure of 38 mmHg Mild pulmonary valve regurgitation. There is no pericardial effusion. There are no intracardiac masses. Compared to the study from 07/21/2022, there is worsening of the aortic valve stenosis Dr Zena Hernandez MD FAC (Electronically Signed) Final Date: 06 February 2024 16:39 S
== END 2024-02-02 11:46 | disposition home or self-care (01) ==
LOC: RAD 11:46
PROVIDERS: PCP Nurse Practitioner Family; Visit Provider Internal Medicine Cardiovascular Disease
DX: I08.0 Rheumatic disorders of both mitral and aortic valves (principal)
CPT/HCPCS: 93306